=== PATIENT | female | born 1995 | race Caucasian/White ===

== ENCOUNTER 2016-10-08 19:13 | Emergency (ER) | payer OTHER ==
[2016-10-08 19:18] VITALS: TEMP 98.6; O2SAT 97
--- NOTE | 2016-10-08 19:42 | EDPHY ---
H & P Stated Complaint: Dog bite to right hand Time Seen by Provider: 10/08/16 19:40 HPI/ROS: CHIEF COMPLAINT: Dog bite to right hand. HISTORY OF PRESENT ILLNESS: This patient is a 21 year old female who presents to the Emergency Department with puncture wounds to her right hand secondary to a dog bite. She tells me that she attempted to pet a customer's dog outside of [facility] when the dog bit down on her hand. Upon arrival, she complains of pain and swelling diffusely to her hand and most significant over the wounds. She has no additional complaints and reports no additional injuries. The quality assurance calibrator told her that the dog was up-to-date on all vaccinations. No pertinent medical history. Her last Tetanus shot was in January 2016. REVIEW OF SYSTEMS: Aside from elements discussed in the HPI, a comprehensive 10-point review of systems was reviewed and is negative. PAST MEDICAL HISTORY: Denies. SOCIAL HISTORY: Single, lives in [place]. PHYSICAL EXAM: GENERAL APPEARANCE: Alert, well-appearing, resting comfortably. FOCUSED EXAM OF RIGHT HAND: 1cm curvilinear gaping laceration over the second metacarpal. Small puncture wound over the third metacarpal. Abrasion/puncture wound over the palmar aspect over the fourth metacarpal. Swelling over the dorsum of the hand. Extensor mechanism of all fingers intact and full strength. NEUROVASCULAR EXAM: Good capillary refill, normal motor exam, normal neurologic exam. Portions of this note were transcribed by a medical office technologist. I personally performed a history, physical exam, medical decision making, and confirmed accuracy of information the transcribed note. - Personal History LMP (Females 10-55): 1-7 Days Ago Current Tetanus/Diphtheria Vaccine: Yes Current Tetanus Diphtheria and Acellular Pertussis (TDAP): Yes Tetanus Vaccine Date: 2015 - Medical/Surgical History Hx Asthma: No Hx Chronic Respiratory Disease: No Hx Diabetes: No Hx Cardiac Disease: No Hx Renal Disease: No Hx Cirrhosis: No Hx Alcoholism: No Hx HIV/AIDS: No Hx Splenectomy or Spleen Trauma: No - Social History Smoking Status: Never smoked Constitutional: Initial Vital Signs Temperature (C) 37.0 C 10/08/16 19:16 Heart Rate 60 10/08/16 19:16 Respiratory Rate 16 10/08/16 19:16 Blood Pressure 111/85 H 10/08/16 19:16 O2 Sat (%) 97 10/08/16 19:16 O2 Delivery Mode Room Air Allergies/Adverse Reactions: No Known Allergies Allergy (Unverified 10/08/16 19:15) Home Medications: Medication Instructions Recorded Amoxicillin/Clavulanate Pot 875 mg PO BID #14 tab 10/08/16 [Augmentin 875Mg] Medical Decision Making - Diagnostics Imaging: Study: X-ray of the right hand Indication: Pain, trauma Results: An x-ray of the right hand was obtained. The results of the study are: Negative. No acute fracture or foreign body. The study was read by Dr. Dexter Haney, radiology. I viewed the results myself on the PACS system. Procedures: Procedure: Wound care Verbal consent was obtained from the patient. The 1cm curvilinear laceration on the dorsum of the right hand was anesthetized using lidocaine. The wound was cleaned with standard ED protocol, draped and explored to its base. The laceration extends to the tendon but does not violate the tendon. Wound was left open. The procedure was performed by myself, Dr. Currie. ED Course/Re-evaluation: I discussed with the patient plan for wound care, x-ray of the right hand, and treatment with a course of Augmentin. She understands that we will not be proceeding with suture closure of the wound due to potential of infection and is agreeable to this. Wound care performed (see procedure note). The patient will be discharged home with script for Augmentin, [place] for pain, and instructions to return to the ED in two days for scheduled wound check. Return precautions have been discussed with the patient and she understands that she should return immediately should she experience any indication of infection. She will be discharged home in good condition. Differential Diagnosis: Diff dx considered included but not limited to animal bite, fracture, laceration , open fracture, tendon injury, joint capsule injury, cellulitis, crush injury. - Data Points Medications Given: Discontinued Medications Acetaminophen/Hydrocodone Bitart ([place] 5/325mg Prepack#6) 1 btl TAKEHOME EDNOW ONE Stop: 10/08/16 21:13 Last Admin: 10/08/16 21:27 Dose: 1 btl Amoxicillin/Clavulanate Potassium (Augmentin 875mg) 875 mg PO EDNOW ONE PRN Reason: Protocol Stop: 10/08/16 21:13 Last Admin: 10/08/16 21:27 Dose: 875 mg Departure - Departure Disposition: Home, Routine, Self-Care Clinical Impression: Dog bite, Laceration of hand, Puncture wound Condition: Good Instructions: Laceration (ED), Animal Bite (ED) Additional Instructions: 1. Take Augmentin as prescribed for 7 days. 2. Alternate 600mg Tylenol and 450mg Ibuprofen every 6 hours as needed for pain. 3. Take [place] as directed, as needed for severe pain. 4. Return to the Emergency Department for scheduled wound check in 2 days. 5. Monitor your wounds for possible signs of infection, including: increased swelling, excessive discharge from wounds, red streaking to your hand or arm, changes in sensation to your hand, or other serious concerns. Present immediately to the Emergency Department if you experience any of these signs. Referrals: Kay Cote MD [Medical Doctor] - As per Instructions Prescriptions: Amoxicillin/Clavulanate Pot [Augmentin 875Mg] 875 mg PO BID #14 tab Report Scribed for: Anjana Currie Report Scribed by: Ernestina Brice Date of Report: 10/08/16 Time of Report: 19:42
--- NOTE | 2016-10-08 20:36 | DX ---
Right Hand - 3 views Indication: Dog bite. Technique: AP, oblique, and lateral views. Comparison: None Findings: The bones are anatomically aligned. No acute fracture. No retained foreign body. Minimal so ft tissue swelling is present along the dorsal aspect of the hand. Impression: Negative. No acute fracture or foreign body.
[2016-10-08] MEDS ORDERED: AMOXICILLIN/CLAVULANATE POT 875/125 MG TAB PO ONE (21:12)
[2016-10-08] MEDS ORDERED: HYDROCOD/APAP 5/325 PREPACK#6 BTL TAKEHOME ONE (21:12)
[2016-10-08 21:29] VITALS: BP 118/76; PULSE 58; RESP 18
== END 2016-10-08 21:29 | disposition home or self-care (01) ==
DX: S61.431A Puncture wound without foreign body of right hand, initial encounter (principal); S61.411A Laceration without foreign body of right hand, initial encounter; W54.0XXA Bitten by dog, initial encounter

== ENCOUNTER 2016-10-11 14:50 | Emergency (ER) | payer OTHER ==
[2016-10-11 14:56] VITALS: BP 137/70; PULSE 74; TEMP 97.9; O2SAT 97
--- NOTE | 2016-10-11 15:15 | EDPHY ---
H & P Stated Complaint: hand wound recheck Time Seen by Provider: 10/11/16 15:14 - Personal History LMP (Females 10-55): 1-7 Days Ago Current Tetanus/Diphtheria Vaccine: Yes Current Tetanus Diphtheria and Acellular Pertussis (TDAP): Yes Tetanus Vaccine Date: 2015 - Medical/Surgical History Hx Asthma: No Hx Chronic Respiratory Disease: No Hx Diabetes: No Hx Cardiac Disease: No Hx Renal Disease: No Hx Cirrhosis: No Hx Alcoholism: No Hx HIV/AIDS: No Hx Splenectomy or Spleen Trauma: No Other PMH: PMH: denies - Social History Smoking Status: Never smoked Constitutional: Initial Vital Signs Temperature (C) 36.6 C 10/11/16 14:53 Heart Rate 74 10/11/16 14:53 Respiratory Rate 16 10/11/16 14:53 Blood Pressure 137/70 H 10/11/16 14:53 O2 Sat (%) 97 10/11/16 14:53 O2 Delivery Mode Room Air Allergies/Adverse Reactions: No Known Allergies Allergy (Unverified 10/08/16 19:15) Home Medications: Medication Instructions Recorded Amoxicillin/Clavulanate Pot 875 mg PO BID #14 tab 10/08/16 [Augmentin 875Mg] Medical Decision Making ED Course/Re-evaluation: CHIEF COMPLAINT: Right hand wound check. HISTORY OF PRESENT ILLNESS: This patient is a normally healthy 21 year old female who presents to the Emergency Department for a scheduled re-check of puncture wounds to her right hand obtained two days prior to arrival when she was bit by a dog. She was seen in the ED following the incident on 10/08 when her wounds were treated and she was given a course of antibiotics which she has been taking faithfully. She denies any pain, swelling, or indications of infection at the site of her wounds and does not have any complaints at this time. REVIEW OF SYSTEMS: A 10 point review of systems was performed and is negative with the exception of the elements mentioned in the history of present illness. PHYSICAL EXAM: General Appearance: Alert, well hydrated, appropriate, and non-toxic appearing. Musculoskeletal: Normal active ROM of all extremities. Right hand: Little through long FDS and FDP in tact. Neurological: The patient has normal DTRs and non-focal cranial nerves, motor, sensory, and cerebellar exam. Skin: No rashes, good turgor, no nodules on palpation. Past medical history: Denies. Past surgical history: Denies. Social history: Lives in [place], single. DIFFERENTIAL DIAGNOSIS: Differential diagnosis for wound check includes: abscess , infection, o MEDICAL DECISION MAKING: This patient is a 21 year old female who presents to the ED requesting a wound check to her 1cm laceration on the dorsum of her right hand and two small puncture wounds to the palmar aspect of her right hand obtained on 10/08 via dog bite. Her wounds appear to be healing appropriately. There are no signs of infection; no swelling, streaking, or discharge. She agrees to continue taking her antibiotics as directed. She understands return to the ED precautions and will be discharged home in good condition. Departure - Departure Disposition: Home, Routine, Self-Care Clinical Impression: Visit for wound check Condition: Good Instructions: Acute Wound Care (ED) Additional Instructions: 1. Continue to take the full course of your antibiotics as prescribed. 2. Return to the Emergency Department immediately with red streaking to your arm , discharge from your wounds, severe pain or swelling, or other concerns. Report Scribed for: Crispin North Report Scribed by: Ernestina Brice Date of Report: 10/11/16 Time of Report: 15:16
[2016-10-11 15:33] VITALS: RESP 18
== END 2016-10-11 15:32 | disposition home or self-care (01) ==
DX: Z48.00 Encounter for change or removal of nonsurgical wound dressing (principal)
CPT/HCPCS: G0463

== ENCOUNTER 2017-05-16 18:10 | Emergency (ER) | payer OTHER ==
[2017-05-16] MEDS ORDERED: LORazepam 2 MG/ML INJ IVP ONE (23:45)
[2017-05-16] MEDS ORDERED: NS 1,000 ML IV ONE (23:45)
[2017-05-17 00:16] LABS: % IMMATURE GRANULYOCYTES 0.3 % (0.0-1.1); ABSOLUTE IMMATURE GRANULOCYTES 0.04 10^3/uL (0.00-0.10); ADD DIFF? NO; ADD MORPH? NO; ADD SCAN? NO; ATYPICAL LYMPHOCYTE FLAG 10 (0-99); FRAGMENT RBC FLAG 0 (0-99); HEMATOCRIT 45.8 % (38.0-47.0); HEMOGLOBIN 15.5 g/dL (12.6-16.3); LEFT SHIFT FLG 0 (0-99); LIPEMIA HEMOLYSIS FLAG 90 (0-99); MEAN CELL HEMOGLOBIN 28.8 pg (27.9-34.1); MEAN CELL HEMOGLOBIN CONCENTR. 33.8 g/dL (32.4-36.7); MEAN PLATELET VOLUME 9.8 fL (8.7-11.7); PLATELET CLUMPS FLAG 0 (0-99); PLATELET COUNT 266 10^3/uL (150-400); RED BLOOD CELL COUNT 5.39 10^6/uL (4.18-5.33); RED CELL DISTRIBUTION WIDTH 12.1 % (11.5-15.2)
--- NOTE | 2017-05-17 00:21 | EDPHY ---
H & P Time Seen by Provider: 05/16/17 23:15 HPI/ROS: CHIEF COMPLAINT: Shortness of breath, sensory overload HISTORY OF PRESENT ILLNESS: This is a 19-year-old female presents with a history of shortness of breath, possible panic attack, and feeling of sensory overload. Patient was at her job today, when she began to feel short of breath. She does report she has some slight anxiety when needing to speak to her boss, did not feel overtly anxious this afternoon. Shortly after she developed shortness of breath patient began to notice that she felt "like she was on drugs ". She reports feeling that the colors on the fonseca with vivid, she was having a hard time focusing, she continued to feel short breath. Patient went home and reports that she developed a mild headache, needed to turn lights off in her home because she was feeling "sensory overload ". Patient reports using small an acid several weeks ago. She denies other recent illicit drug use. Smokes marijuana on occasion. Does not drink alcohol. Denies any drug use today. Patient had no seizure, no fever, no cough, no nausea or vomiting, no tingling. Denies any recent head trauma. No history of pulmonary embolism. Nonsmoker. Not on control pills. REVIEW OF SYSTEMS: Aside from elements discussed in the HPI, a comprehensive 10-point review of systems was reviewed and is negative. PAST MEDICAL HISTORY: Anxiety SOCIAL HISTORY: Occasional marijuana use. VITAL SIGNS Reviewed by me. GENERAL: Well-developed, well-nourished, resting comfortably in no respiratory distress. Seems slightly anxious. Intermittently tachycardic. HEENT: Atraumatic. Eyes: No icterus, no injection. Pupils are 5 mm and reactive bilaterally. EOMI. No nystagmus. Mouth: moist mucous membranes. No erythema or lesions. Neck: supple with no adenopathy. LUNGS: Clear to auscultation bilaterally, no wheezes, rhonchi or rales. CARDIAC: Regular rate and rhythm, no rubs, murmurs or gallops. ABDOMEN: Soft, nontender, nondistended, bowel sounds normal. BACK: No CVA tenderness. EXTREMITIES: No trauma. No edema. Range of motion is normal throughout. NEURO: Alert and oriented, grossly nonfocal. SKIN: Warm and dry, no rash. PSYCHIATRIC: Normal mentation, no agitation. Smoking Status: Never smoked Constitutional: Initial Vital Signs Temperature (C) 36.6 C 05/16/17 18:18 Heart Rate 103 H 05/16/17 18:18 Respiratory Rate 18 05/16/17 18:18 Blood Pressure 135/90 H 05/16/17 18:18 O2 Sat (%) 96 05/16/17 18:18 O2 Delivery Mode Room Air Allergies/Adverse Reactions: No Known Allergies Allergy (Unverified 10/08/16 19:15) Home Medications: Medication Instructions Recorded Amoxicillin/Clavulanate Pot 875 mg PO BID #14 tab 10/08/16 [Augmentin 875Mg] Medical Decision Making ED Course/Re-evaluation: 22-year-old female presenting with a sensation of being drugged having sensory overload. This occurred while at a meeting at work. She does have a history of some anxiety but has not had a panic attack previously. Currently she reports feeling some chest tightness. Patient had IV placed. She received 1 mg of Ativan. Laboratory evaluation including CBC, chemistries, D-dimer were normal. I have a low pretest probability for pulmonary embolism as a cause for the patient's shortness of breath, however, her initial heart rate was greater than 100 making her perc positive. Dimer was ordered. Patient provided a urine sample which was sent for urine tox screen. This was negative. On re-evaluation the patient reports her symptoms have improved. She is comfortable being discharged home. She was given referral to Dr. Verde, on- call for unassigned patients, and will follow up next week. Patient understands the need for further evaluation should her symptoms recur, especially if she should develop a seizure, significant headache with these symptoms. She also understands the need to follow up with Dr. Verde for management of possible anxiety or panic disorder. Differential Diagnosis: Differential diagnoses for the patient's symptom complex was considered including but not limited to panic attack, anxiety, illicit drug use, partial complex seizure, electrolyte abnormalities. - Data Points Laboratory Results: Laboratory Results 05/17/17 00:05 05/17/17 00:05 05/17/17 05/17/17 05/17/17 01:00 00:05 00:05 WBC RBC Hgb Hct MCV MCH MCHC RDW Plt Count MPV Neut % (Auto) Lymph % (Auto) [place] % (Auto) Eos % (Auto) Baso % (Auto) Nucleat RBC Rel Count Absolute Neuts (auto) Absolute Lymphs (auto) Absolute Monos (auto) Absolute Eos (auto) Absolute Basos (auto) Absolute Nucleated RBC Immature Gran % Immature Gran # D-Dimer < 0.27 ug/mLFEU ug/mLFEU (0.00-0.50) Sodium Potassium Chloride Carbon Dioxide Anion Gap BUN Creatinine Estimated GFR Glucose Calcium Beta HCG, Qual NEGATIVE Urine Opiates Screen NEGATIVE (NEGATIVE) Urine Barbiturates NEGATIVE (NEGATIVE) Ur Phencyclidine Scrn NEGATIVE (NEGATIVE) Ur Amphetamine Screen NEGATIVE (NEGATIVE) U Benzodiazepines Scrn NEGATIVE (NEGATIVE) Urine Cocaine Screen NEGATIVE (NEGATIVE) U Marijuana (THC) Screen NEGATIVE (NEGATIVE) 05/17/17 05/17/17 00:05 00:05 WBC 12.05 10^3/uL H 10^3/uL (3.80-9.50) RBC 5.39 10^6/uL H 10^6/uL (4.18-5.33) Hgb 15.5 g/dL g/dL (12.6-16.3) Hct 45.8 % % (38.0-47.0) MCV 85.0 fL fL (81.5-99.8) MCH 28.8 pg pg (27.9-34.1) MCHC 33.8 g/dL g/dL (32.4-36.7) RDW 12.1 % % (11.5-15.2) Plt Count 266 10^3/uL 10^3/uL (150-400) MPV 9.8 fL fL (8.7-11.7) Neut % (Auto) 72.5 % % (39.3-74.2) Lymph % (Auto) 20.6 % % (15.0-45.0) [place] % (Auto) 5.9 % % (4.5-13.0) Eos % (Auto) 0.1 % L % (0.6-7.6) Baso % (Auto) 0.6 % % (0.3-1.7) Nucleat RBC Rel Count 0.0 % % (0.0-0.2) Absolute Neuts (auto) 8.74 10^3/uL H 10^3/uL (1.70-6.50) Absolute Lymphs (auto) 2.48 10^3/uL 10^3/uL (1.00-3.00) Absolute Monos (auto) 0.71 10^3/uL 10^3/uL (0.30-0.80) Absolute Eos (auto) 0.01 10^3/uL L 10^3/uL (0.03-0.40) Absolute Basos (auto) 0.07 10^3/uL 10^3/uL (0.02-0.10) Absolute Nucleated RBC 0.00 10^3/uL 10^3/uL (0-0.01) Immature Gran % 0.3 % % (0.0-1.1) Immature Gran # 0.04 10^3/uL 10^3/uL (0.00-0.10) D-Dimer Sodium 139 mEq/L mEq/L (134-144) Potassium 3.9 mEq/L mEq/L (3.5-5.2) Chloride 105 mEq/L mEq/L (97-110) Carbon Dioxide 21 mEq/l L mEq/l (22-31) Anion Gap 13 mEq/L mEq/L (8-16) BUN 9 mg/dL mg/dL (7-23) Creatinine 0.7 mg/dL mg/dL (0.6-1.0) Estimated GFR > 60 Glucose 80 mg/dL mg/dL (70-100) Calcium 10.1 mg/dL mg/dL (8.5-10.4) Beta HCG, Qual Urine Opiates Screen Urine Barbiturates Ur Phencyclidine Scrn Ur Amphetamine Screen U Benzodiazepines Scrn Urine Cocaine Screen U Marijuana (THC) Screen Medications Given: Discontinued Medications Sodium Chloride (Ns) 1,000 mls @ 0 mls/hr IV ONCE ONE; Wide Open PRN Reason: Protocol Stop: 05/16/17 23:46 Last Admin: 05/17/17 00:05 Dose: 1,000 mls Lorazepam (Ativan Injection) 1 mg IVP EDNOW ONE Stop: 05/16/17 23:46 Last Admin: 05/17/17 00:05 Dose: 1 mg Lorazepam (Ativan 1 Mg Prepack#4) 1 btl TAKEHOME EDNOW ONE Stop: 05/17/17 01:31 Last Admin: 05/17/17 01:37 Dose: 1 btl Departure - Departure Disposition: Home, Routine, Self-Care Clinical Impression: Shortness of breath, Possible anxiety, Alterations of sensations Condition: Good Instructions: Lorazepam (By mouth), Anxiety (ED), Panic Attack (ED) Additional Instructions: Please get plenty of rest. Drink plenty of fluid. Try to avoid sleep deprivation. Avoid illicit drugs. Please follow up with Dr. Verde or 1 of her partners, next week for re- evaluation. Okay to use Ativan if needed for anxiety. Return to the emergency department or seek care urgently if you have recurrent symptoms of "sensory overload ", out of body sensations, hallucinations, or significant headaches. Referrals: NONE *PRIMARY CARE P,. [Primary Care Provider] - As per Instructions Jude Verde MD [Medical Doctor] - As per Instructions
[2017-05-17 00:35] LABS: ANION GAP 13 mEq/L (8-16); CALCIUM 10.1 mg/dL (8.5-10.4); CARBON DIOXIDE 21 mEq/l (22-31); CHLORIDE 105 mEq/L (97-110); CREATININE 0.7 mg/dL (0.6-1.0); GLOMERULAR FILTRATION RATE > 60; GLUCOSE 80 mg/dL (70-100); POTASSIUM 3.9 mEq/L (3.5-5.2); SODIUM 139 mEq/L (134-144)
[2017-05-17 01:07] VITALS: RESP 16; O2SAT 94
[2017-05-17] MEDS ORDERED: LORAZEPAM 1 MG PREPACK#4 BTL TAKEHOME ONE (01:30)
[2017-05-17 01:40] VITALS: BP 122/75; PULSE 80; TEMP 98.1
== END 2017-05-17 01:39 | disposition home or self-care (01) ==
DX: R06.02 Shortness of breath (principal); E86.9 Volume depletion, unspecified
CPT/HCPCS: 80305; 96374; J2060